=== PATIENT | male | born 1980 | race Caucasian/White ===

== ENCOUNTER 2024-02-26 03:44 | Observation (INO) | payer OTHER ==
[~2024-02-26] VITALS: Ht 182.9 cm; Wt 114.0 kg
[2024-02-26] VITALS (16 sets, daily range): BP systolic 123–157; BP diastolic 72–86; PULSE 72–88; TEMP 97.6–98.3
[2024-02-26] MEDS ORDERED: Morphine 4 MG/ML VIAL IV ONE ×2 (04:30→06:15)
[2024-02-26 04:37] LABS: BASO % 0.4 % (0.0-2.0); EOS % 0.1 % (0.0-4.0); GRAN # 9.4 K/mm3 (1.4-6.5); GRAN % 83.9 % (42.2-75.2); HEMATOCRIT 44.9 % (42.0-52.0); HEMOGLOBIN 15.3 g/dl (13.5-18.0); LYMPH # 1.2 K/mm3 (1.2-3.4); LYMPH % 10.9 % (20.0-51.0); MEAN CELL VOLUME 90 fl (80.0-100.0); MEAN CORPUSCULAR HEMOGLOBIN 31 pg (27-31); MEAN CORPUSCULAR HGB CONC 34 g/dl (33.0-37.0); MEAN PLATELET VOLUME 10.5 fl (7.4-10.4); MONO # 0.5 K/mm3 (0.1-0.6); MONO % 4.3 % (1.7-9.3); PLATELET COUNT 246 K/mm3 (130-400); RED BLOOD COUNT 4.99 M/mm3 (4.20-5.60); REDCELL DISTRIBUTION WIDTH-CV 12.3 % (11.5-14.5)
[2024-02-26 05:05] LABS: ALBUMIN 4.4 g/dL (3.5-5.0); BILIRUBIN,TOTAL 0.5 mg/dL (0.2-1.2); CALCIUM 9.8 mg/dL (8.4-10.2); CREATININE, serum 0.98 mg/dL (0.72-1.25); MAGNESIUM 1.8 mg/dL (1.6-2.6); POTASSIUM 4.5 mEq/L (3.5-4.5); TOTAL PROTEIN 7.7 g/dl (6.2-8.1)
[2024-02-26] MEDS ORDERED: Iohexol 300 - 100 ML VIAL IV ONE (05:08)
[2024-02-26] MEDS ORDERED: NS 50 ML IV ONE (05:10)
[2024-02-26 05:11] LABS: TROPONIN-I 0.013 ng/mL (0.00-0.033)
[2024-02-26] MEDS ORDERED: ZYRTEC 10MG10 MG PO (06:39)
[2024-02-26] MEDS ORDERED: FLONASE NASAL S16 GM NS (06:39)
[2024-02-26] MEDS ORDERED: HYDROmorphone 0.5 MG/0.5 ML SYRINGE IV PRN (08:00)
[2024-02-26] MEDS ORDERED: LR 1,000 ML IV SCH (08:00)
[2024-02-26] MEDS ORDERED: Ondansetron 4 MG/2 ML VIAL IV PRN ×2 (08:00→09:00)
[2024-02-26] MEDS ORDERED: oxyCODONE/Acetaminophen 5-325 MG TAB PO PRN (08:00)
[2024-02-26] MEDS ORDERED: Lidocaine PF 2% (20 MG/ML) 5 ML VIAL ONE (08:15)
[2024-02-26] MEDS ORDERED: NS 10 ML IV ONE (08:15)
[2024-02-26] MEDS ORDERED: Ondansetron 4 MG/2 ML VIAL ONE (08:15)
[2024-02-26] MEDS ORDERED: fentaNYL 50 MCG/ML 2 ML VIAL ONE (08:15)
[2024-02-26] MEDS ORDERED: dexAMETHasone 10 MG/ML VIAL ONE (08:15)
[2024-02-26] MEDS ORDERED: Rocuronium 50 MG/5 ML Multi-Dose VIAL ONE (08:15)
--- NOTE | 2024-02-26 08:24 | NUR ---
0815 RECEIVED VERBAL ORDER FROM JOJO Nguyen CRNA TO PLACE 18F NG TUBE WITH LIDOCAINE JELLY, REPEATED ORDER BACK. PATIENT EDUCATED ON PROCEDURE, PATIENT VERBALIZES UNDERSTANDING AND DENIES QUESTIONS AT THIS TIME. MEASURED NG TUBE 50-55CM PRIOR TO PLACEMENT. PATIENT REPORTS LEFT NARE MORE OPEN. 18F NG TUBE INSERTED INTO LEFT NARE USING LIDOCAINE JELLY, INSERTED TO 55CM AT NARE. PATIENT TOLERATED PROCEDURE WELL. NG TUBE CONNECTED TO SUCTION, 3ML CLEAR GASTRIC CONTENTS REMOVED. NG TUBE PLACEMENT CONFIRMED WITH GASTRIC CONTENTS. JOJO Nguyen CRNA AWARE.
[2024-02-26] MEDS ORDERED: BUPivacaine PF 0.5% w EPI (1:200,000) 10 ML VIAL IJ ONE ×2 (08:39)
[2024-02-26] MEDS ORDERED: HYDROmorphone 1 MG/1 ML SYRINGE [PACU/SDC ONLY] IV PRN (09:00)
[2024-02-26] MEDS ORDERED: droPERidol 2.5 MG/ML 2 ML VIAL IV PRN (09:00)
[2024-02-26] MEDS ORDERED: Meperidine 50 MG/ML 1 ML VIAL IV PRN (09:00)
[2024-02-26] MEDS ORDERED: fentaNYL 50 MCG/ML 1 ML SYRINGE/VIAL [PACU/SDC ONLY] IV PRN (09:00)
[2024-02-26] MEDS ORDERED: Morphine 2 MG/1 ML VIAL [PACU/SDC ONLY] IV PRN (09:00)
[2024-02-26] MEDS ORDERED: Ketorolac 30 MG/ML VIAL ONE (09:10)
--- NOTE | 2024-02-26 11:20 | NUR ---
Patient resting in bed. at bedside. rounded. NG tube clamped. Ice water provided. He denies nausea. Ivf as ordered. Scds ble. Umbilical site edges well approximated. Abdomen soft. Bowels quiet. Denies other needs at this time
--- NOTE | 2024-02-26 12:51 | NUR ---
Patient frustrated by NG tube, requesting it be removed. Dr. Cullen called, NG to stay in place at this time. Will reevaluate around 1600. Patient denies nausea. Tolerating clear liquids. Denies other needs at this time
[2024-02-26] MEDS ORDERED: Phenol 1.4% Spray 180 ML BOTTLE MM PRN (13:00)
--- NOTE | 2024-02-26 15:45 | NUR ---
Patient continues to deny nausea or increased pain. NG clamped.
--- NOTE | 2024-02-26 18:10 | NUR ---
Orders obtained to DC NG tube. Full liquid dinner orders. Denies nausea. Reports ubilical incision site pain increasing slightly, but not wanting pain medication at this time. Voiding without problems. IVf as ordered. Scds. Will report off to nightnurse
[2024-02-27 03:32] VITALS: BP 126/75; PULSE 65; TEMP 98.2
[2024-02-27 04:00] VITALS: BP_SYST 126
[2024-02-27 07:27] VITALS: BP 114/80; PULSE 68; TEMP 98
[2024-02-27 08:00] VITALS: BP_SYST 114
--- NOTE | 2024-02-27 08:00 | NUR ---
PATIENT IS A&O. VSS. NO C/O N/V OR PAIN. ABD IS DISTENDED WITH POSITIVE BOWL SOUNDS NOTED. ABD SITE IS CD&I WITH GLUED CLOSURE. PATIENT REPORTS HE IS PASSING GAS, NO BM YET. TOLERATING FULL LIQUIDS. LEFT AC IV TO INT. HEAD TO TOE ASSESSMENT WNL. INDEPENDENT IN ROOM. NO OTHER NEEDS. CALL LIGHT IN REACH.
[2024-02-27 09:37] LABS: BASO % 0.3 % (0.0-2.0); EOS # 0.1 K/mm3 (0.0-0.7); EOS % 0.9 % (0.0-4.0); GRAN # 9.4 K/mm3 (1.4-6.5); GRAN % 68.8 % (42.2-75.2); HEMOGLOBIN 13.5 g/dl (13.5-18.0); LYMPH # 2.7 K/mm3 (1.2-3.4); LYMPH % 19.4 % (20.0-51.0); MEAN CELL VOLUME 93 fl (80.0-100.0); MEAN CORPUSCULAR HEMOGLOBIN 31 pg (27-31); MEAN CORPUSCULAR HGB CONC 33 g/dl (33.0-37.0); MEAN PLATELET VOLUME 10.8 fl (7.4-10.4); MONO # 1.4 K/mm3 (0.1-0.6); MONO % 10.1 % (1.7-9.3); PLATELET COUNT 220 K/mm3 (130-400); RED BLOOD COUNT 4.43 M/mm3 (4.20-5.60); REDCELL DISTRIBUTION WIDTH-CV 12.7 % (11.5-14.5)
[2024-02-27 10:01] LABS: ALBUMIN 3.6 g/dL (3.5-5.0); BILIRUBIN,TOTAL 0.5 mg/dL (0.2-1.2); CALCIUM 9.2 mg/dL (8.4-10.2); CREATININE, serum 1.05 mg/dL (0.72-1.25); POTASSIUM 4.3 mEq/L (3.5-4.5); TOTAL PROTEIN 6.4 g/dl (6.2-8.1)
[2024-02-27 11:43] VITALS: BP 122/81; PULSE 63; TEMP 98.2
--- NOTE | 2024-02-27 11:43 | NUR ---
SW met with patient to complete intake. Patient provides he resides in [facility] with spouse Samra Friedman [phone] who is also appointed as his DPOA/HC. Patient provides he does not utilize DME, is independent with ADLs, and does not utilize home health services at this time. PCP is Dr. Betts, and pharmacy is [facility]. Patient states he has no concerns about care and plans to return to his home upon discharge. SW will continue to follow. Discharge plan: home
[2024-02-27] MEDS ORDERED: MOTRIN 600600 MG/TAB PO (12:10)
[2024-02-27] MEDS ORDERED: PERCOCET 325 MG1 TA2 PO (12:10)
[2024-02-27 12:16] VITALS: BP_SYST 122
--- NOTE | 2024-02-27 15:45 | NUR ---
PATIENT TOLERATED LOW FIBER DIET AND HAS MEET DISCHARGE CRITERIA. GAVE DISCHARGE INSTRUCTIONS, E-SCRIPTS SENT, AND DISCUSSED F/U APT. ANSWERED QUESTIONS/CONCERNS. DC'D LEFT AC IV AND COVERED SITE WITH GAUZE & COBAN. PATIENT IS DRESSED, PACKED AND DISCHARGED TO PRIVATE VEHICLE VIA AMBULATORY.
== END 2024-02-27 13:45 | disposition home or self-care (01) ==
LOC: COL.ER 03:44 → SDCO 07:50 → SURG 07:50 → SDCO 07:51 → SURG 07:51 → SDCO 02-27 15:45 → SURG 02-27 15:45
PROVIDERS: Emergency Medicine; ADMIT Surgery
DX: K42.0 Umbilical hernia with obstruction, without gangrene (principal); K21.9 Gastro-esophageal reflux disease without esophagitis
CPT/HCPCS: OP; G0378; J0690; J1100; J1885; J2270; J2405; J2704; J3010; J7120; Q9967